=== PATIENT | female | born 1945 | race Two or more races ===

== ENCOUNTER → 2023-05-22 | Emergency (ER) | payer OTHER ==
[~2023-05-22] VITALS: Ht 162.6 cm; Wt 81.6 kg
[~2023-05-22] MED LIST: AMLODIPINE-OLM1 EAC2 PO; ATORVASTATIN CA40 MG PO; CARVEDILOL12.5 M1 PO; HUMULIN 70100 UNIT/2 SUBCUTANEO; ISOSORBIDE DINI30 MG PO; ZESTRIL20 MG PO
[2023-05-22 21:28] LABS: HEMATOCRIT 27.4 % (36.0-45.00); HEMOGLOBIN 9.3 g/dL (12.0-15.00); MEAN CELL VOLUME 82.1 fL (80.00-100.00); MEAN CORPUSCULAR HEMOGLOBIN 27.9 pg (27.00-32.0); PLATELET COUNT 186 K/uL (150-450); RED BLOOD COUNT 3.34 M/uL (4.00-6.00)
[2023-05-22 21:50] LABS: PARTIAL THROMBOPLASTIN TIME 26.6 SECONDS (22.0-34.0); PROTHROMBIN TIME 10.5 SECONDS (9.0-11.5)
[2023-05-22 21:56] LABS: ALBUMIN 2.4 gm/dL (3.4-5.0); BILIRUBIN TOTAL 0.3 mg/dL (0.3-1.2); CREATININE SERUM 2.11 mg/dL (0.55-1.02); GFR 22.65; GLOBULINA 3.7 G/DL (2.4-3.5); POTASSIUM 3.51 mEq/L (3.5-5.1); TOTAL PROTEIN 6.1 gm/dL (6.4-8.2)
== END | disposition home or self-care (01) ==
LOC: ER 19:48
PROVIDERS: General Practice
DX: R04.0 Epistaxis (principal); Z88.0 Allergy status to penicillin; E11.65 Type 2 diabetes mellitus with hyperglycemia; Z79.4 Long term (current) use of insulin